=== PATIENT | male | born 1950 | race American Indian/Alaskan Native ===

== ENCOUNTER 2016-04-06 17:40 | Inpatient (IN) | payer MEDICARE ==
--- NOTE | 2016-04-06 18:52 | History and Physical Report ---
History of Present Illness Date of examination: 04/06/16 Date of admission: April 06 2016 Chief complaint: Left sided weakness Slurred speech Unsteady gait Difficulty with ambulation blurred vision History of present illness: 65 year old male here to get established with our practice presenting with weakness in the left leg ongoing for the past two days .Patient has had pain in the lower extremities over the years with associated occasional numbness in both lower extremities .Patient first had a stroke in 1994 which affected the left side of his body but he stated that he recovered completely from it . Patient stated that he woke up two days ago and noticed he could not get up, he then decided to go back to sleep but finally able to force himself to get up after going back to sleep . He attempted to star walking but noticed that he was unable to maintain erect posture but still struggled to ambulate , on trying to get to the bathroom , he fell and was not able to get up for about half hour , patient currently lives with his sister and later got up by himself after a lot of difficulty .Since then he has had difficulty ambulating and now uses a walking stick to walk but it slow and has noticed unsteadiness since the incidence ,he also noticed that the left leg feels numb and heavy and also felt some weakness in the left upper extremities as well but not as severe as the lower extremity . Patient denied any difficulty swallowing but patient changes with speech and his sister confirmed that his speech is slurred slurred speech . Patient denied any shortness of breath and no chest pain . Patient aslo gave remote history of heart atack several years ago when he used to live in [place] but denied any chest pain at this time but has had shortness of breath with exertion over the years . Past History Past Medical History: acute [place], hypertension, stroke Social history: Family history: hypertension Medications and Allergies Allergies Allergy/AdvReac Type Severity Reaction Status Date / Time No Known Allergies Allergy Unverified 04/06/16 18:33 Review of Systems Constitutional: weight gain, fatigue, weakness, chronic pain Eyes: bilateral: blurred vision Cardiovascular: orthopnea, palpitations, lightheadedness, shortness of breath, high blood pressure, decreased exercise tolerance Respiratory: dyspnea on exertion Musculoskeletal: shooting arm pain, low back pain, leg numbness/tingling, morning stiffness, frequent falls Neurological: weakness, numbness, lack of coordination, headaches, change in speech, confusion, balance difficulties, gait dysfunction, motor disturbance, paralysis Exam - Constitutional General appearance: Present: no acute distress - EENT Eyes: Present: EOM intact - Neck Neck: Present: normal ROM - Respiratory Respiratory effort: normal Respiratory: bilateral: CTA - Cardiovascular Rhythm: regularly irregular Heart Sounds: Present: systolic murmur - Extremities Extremities: pulses symmetrical, No edema, normal temperature, normal color Peripheral Pulses: within normal limits - Abdominal General gastrointestinal: Present: soft, non-tender, non-distended, normal bowel sounds Male genitourinary: Present: deferred - Rectal Rectal Exam: deferred - Integumentary Integumentary: Present: warm, dry - Musculoskeletal Musculoskeletal: left sided weakness - Psychiatric Psychiatric: appropriate mood/affect - Neurologic Neurologic: other (left sided weakness .Power 3/5 in left lower and 4/5 in left upper . Gait ataxic leaning right ) Assessment and Plan - Patient Problems (1) Acute cerebrovascular insufficiency Status: Acute Plan to address problem: Admit for further workup and neurological evaluation (2) Essential (primary) hypertension Status: Acute Plan to address problem: Review current therapy and adjust for optimum control (3) Mixed hyperlipidemia Status: Acute Plan to address problem: Continue lipid lowering medication as ordered (4) Ataxia due to cerebrovascular disease Status: Acute Plan to address problem: Physical therapy , Occupational therapy .
[2016-04-06] MEDS: TYLENOL PO SCH (20:35)
--- NOTE | 2016-04-06 21:42 | Cat Scan Report ---
FINAL REPORT PROCEDURE: CT HEAD/BRAIN WO CON TECHNIQUE: Computerized tomography of the head was performed without contrast material. HISTORY: Stroke symptoms COMPARISON: No prior studies are available for comparison. FINDINGS: There are diffuse involutional changes, with prominence of the ventricles and the sulci. There is focal right frontal periventricular white matter low attenuation, which has a chronic appearance, likely related to chronic microvascular ischemic changes. There is no CT evidence of acute intracranial hemorrhage, mass, hydrocephalus, or acute territorial infarction. The calvarium is intact. There is mild mucosal thickening in the sphenoid sinus. IMPRESSION: No CT evidence of acute intracranial disease process
[2016-04-06 22:24] LABS: Basophils % (Auto) 0.5 % (0.0-1.8); Eosinophils % (Auto) 1.9 % (0.0-4.3); Hematocrit 42.7 % (35.5-45.6); Hemoglobin 14.1 gm/dl (11.8-15.2); Mean Corpuscular HGB Conc 33 % (32-34); Mean Corpuscular Hemoglobin 30 pg (28-32); Mean Corpuscular Volume 91 fl (84-94); Platelet Count 176 K/mm3 (140-440); Red Cell Distribution Width 13.9 % (13.2-15.2); White Blood Count 5.8 K/mm3 (4.5-11.0)
[2016-04-06 22:35] LABS: INR 1.14 (0.87-1.13); Partial Thromboplastin Time 33.6 Sec. (24.2-36.6)
[2016-04-06 22:44] LABS: Alanine Aminotransferase 11 units/L (7-56); Albumin/Globulin Ratio 1.2 %; Alkaline Phosphatase 91 units/L (35-129); Blood Urea Nitrogen 14 mg/dL (9-20); Calcium 9.1 mg/dL (8.4-10.2); Carbon Dioxide 28 mmol/L (22-30); Chloride 97.4 mmol/L (98-107); Glucose 107 mg/dL (75-100); Potassium 3.4 mmol/L (3.6-5.0); Sodium 140 mmol/L (137-145); Total Protein 7.4 g/dL (6.3-8.2)
[2016-04-06 23:04] LABS: Anion Gap 18 mmol/L
[2016-04-07] MEDS: TYLENOL PO SCH ×4 (02:19→21:17)
--- NOTE | 2016-04-07 07:38 | Admit Criteria Form ---
Admission Criteria Documentation: STROKE: ISCHEMIC Clinical Indications for Admission to Inpatient Care (Place 'X' for any and all applicable criteria): Admission is indicated for ANY ONE of the following(1)(2)(3)(4): [X ]I. Acute stroke Extended stay beyond goal length of stay may be needed for(1)(2) [ ]a) Major deficit or clinical deterioration [ ]b) Hospital-acquired infection (eg, urinary tract infection, pneumonia) [ ]c) Embolic cause of stroke [ ]d) Venous thromboembolism(9) [ ]e) Seizures [ ]f) Bleeding (eg, cerebral) [ ]g) Increased intracranial pressure [ ]h) Comorbidities [ ]i) Surgical intervention The original [email or web address] content created by [employer] has been revised. The portions of the content which have been revised are identified through the use of italic text or in bold, and [facility] has neither reviewed nor approved the modified material. All other unmodified content is copyright [email or web address]. Please see references footnoted in the original [email or web address] edition 2016 Admission Criteria Met: Yes
--- NOTE | 2016-04-07 14:02 | Progress Note ---
Assessment and Plan - Patient Problems (1) Acute cerebrovascular insufficiency Current Visit: Yes Status: Acute Plan to address problem: CT scan report noted showing no acute cerebrovascular event. We'll order MRI to confirm acute CVA and localization Patient gets to be evaluated by neurologists, awaiting consultation (2) Essential (primary) hypertension Current Visit: Yes Status: Acute Plan to address problem: Blood pressure noted to be within normal range will hold off on restarting blood pressure medication at this time. (3) Mixed hyperlipidemia Current Visit: Yes Status: Acute Plan to address problem: Will restart patient on a medication. (4) Ataxia due to cerebrovascular disease Current Visit: Yes Status: Acute Subjective Date of service: 04/07/16 Interval history: Patient seen and examined chart reviewed. Impression denied any new complaints , still having weakness and heaviness on the left side worse than the left lower extremities. Patient was able to ambulate with support during physical therapy started this morning. No chest pain and no shortness of breath reported and patient denied any headache and no blurred vision. No new neurological changes reported since hospitalization Objective - Exam Narrative Exam: GENERAL: Patient is not in any acute distress, sitting at the edge of the bed, awake alert oriented 3 HEENT: Patient is not pale, not jaundiced, not cyanosed. NECK: No JVD, no thyroid enlargement and no lymphadenopathy. CHEST/LUNGS: Good air exchange bilaterally, no wheeze, no rales and no rhonchi. No chest wall tenderness, percussion is normal, symmetrical chest wall. HEART/CARDIOVASCULAR: Regular rate and rhythm, S1 and S2 only, no murmur. ABDOMEN: Abdomen is soft, nondistended, no guarding, no rebound tenderness, no masses palpable per abdomen, active bowel sounds. SKIN: Warm and dry, no rash. NEURO: Awake alert oriented 3, speech is slow but no slurred, power 5 over 5 in right upper and lower extremities, 3 over 5 in the left upper extremity and 2 over 5 in the left lower extremity. EXTREMITIES: No pedal edema, good peripheral pulses, no finger or toe clubbing. - Constitutional Vitals: Vital Signs - 12hr 04/07/16 04/07/16 04/07/16 02:19 04:46 08:00 Temperature 97.4 F L 98.2 F Pulse Rate [ 68 57 L Radial] Respiratory 18 20 18 Rate Blood Pressure 141/82 135/77 [108/68] O2 Sat by Pulse 100 Oximetry 04/07/16 11:38 Temperature 98.0 F Pulse Rate [ 60 Radial] Respiratory 16 Rate Blood Pressure 130/70 [108/68] O2 Sat by Pulse 100 Oximetry - Labs CBC & Chem 7: 04/06/16 21:46 04/06/16 21:54 Labs: Abnormal lab results 04/06/16 04/06/16 04/06/16 Range/Units 21:46 21:54 21:54 [place] % (Auto) 10.9 H (0.0-7.3) % INR 1.14 H (0.87-1.13) Potassium 3.4 L (3.6-5.0) mmol/L Chloride 97.4 L (98-107) mmol/L Glucose 107 H (75-100) mg/dL
[2016-04-07] MEDS ORDERED: K-DUR PO ONE (14:17)
[2016-04-07] MEDS ORDERED: NITROSTAT SL PRN (19:39)
[2016-04-07] MEDS ORDERED: NON-FORMULARY (Isosorbide Mononitrate 30 MG) PO SCH (19:45)
[2016-04-07] MEDS: PLAVIX PO SCH (21:11)
[2016-04-07] MEDS: ZESTRIL PO SCH (21:12)
[2016-04-07] MEDS: BABY ASPIRIN PO SCH (21:12)
[2016-04-08] MEDS: TYLENOL PO SCH ×4 (03:00→23:07)
[2016-04-08 07:43] LABS: Anion Gap 16 mmol/L; BUN/Creatinine Ratio 14.44; Blood Urea Nitrogen 13 mg/dL (9-20); Calcium 9.2 mg/dL (8.4-10.2); Carbon Dioxide 28 mmol/L (22-30); Chloride 100.8 mmol/L (98-107); Glucose 108 mg/dL (75-100); Potassium 3.5 mmol/L (3.6-5.0); Sodium 141 mmol/L (137-145)
[2016-04-08] MEDS ORDERED: NON-FORMULARY (Hydrochlorothiazide 25 MG) PO SCH (10:00)
--- NOTE | 2016-04-08 10:17 | Magnetic Resonance Report ---
MRA of brain: History: Acute CVA. Findings: There is arteriosclerotic changes noted at the vessels of [place] predominantly in the anterior and middle cerebral arteries. The posterior communicating vessels are faintly visualized. Atherosclerotic changes are noted at the basilar and vertebral arteries. Suspicion of multiple stenotic areas. No occlusion. No evidence of aneurysm. Impression: Findings as detailed above.
[2016-04-08] MEDS: HCTZ PO SCH (10:59)
[2016-04-08] MEDS: IMDUR PO SCH (10:59)
[2016-04-08] MEDS: PLAVIX PO SCH (10:59)
[2016-04-08] MEDS: ZESTRIL PO SCH (11:00)
[2016-04-08] MEDS: BABY ASPIRIN PO SCH (11:00)
[2016-04-08] MEDS: LOPRESSOR PO SCH (11:05)
--- NOTE | 2016-04-08 11:43 | Echocardiography Report ---
Transthoracic Echocardiogram BP: 141/82 HR: 57 Conclusions *1. Mild dilated LV with mild LV dysfunction, EF 40-45%. *2. Moderate conc LVH. *3. Mild dilatation of the ascending aorta, 4.4 cm. Findings Procedure Info: The study quality is technically difficult. The study is technically limited due to poor acoustic windows. Left Ventricle: The left ventricular chamber size is mildly dilated. Moderate concentric left ventricular hypertrophy is observed. Posterior wall hypertrophy is observed. Mild global hypokinesis of the left ventricle is observed. Global left ventricular systolic function is mildly decreased. The estimated ejection fraction is 40-45%. The basal inferoseptal wall segment is akinetic. Left Atrium: The left atrial chamber size is normal. Right Ventricle: The right ventricle is not well visualized. The right ventricular cavity size is normal. The right ventricular global systolic function is normal. Right Atrium: The right atrium is not well visualized. The right atrial cavity size is normal. Aortic Valve: The aortic valve is not well visualized. The aortic valve is trileaflet. The aortic valve leaflets are moderately thickened. There is moderate thickening of the right coronary cusp. There is moderate thickening of the non coronary cusp. Moderate aortic leaflet calcification is visualized. Systolic excursion of the aortic valve is normal. There is no evidence of aortic regurgitation. There is no evidence of aortic stenosis. Mitral Valve: The mitral valve leaflets appear myxomatous. The mitral valve leaflets are mildly thickened. There is trace of mitral regurgitation. There is no evidence of mitral stenosis. Tricuspid Valve: The tricuspid valve is not well visualized. There is trace tricuspid regurgitation. The right ventricular systolic pressure is calculated at 23 mmHg. No pulmonary hypertension is noted. There is no tricuspid stenosis. Pulmonic Valve: The pulmonic valve is not well visualized. There is trace pulmonic regurgitation. There is no pulmonic stenosis. Pericardium: There is no pericardial effusion. No pleural effusion is present. Aorta: There is mild dilatation of the ascending aorta. Venous: The inferior vena cava appears normal in size. There is a greater than 50% respiratory change in the inferior vena cava dimension. Contrast: Definity was used to optimize study. Intravenous contrast was used to enhance endocardial border definition. Measurements Chambers MM Name Value Normal Range IVSd (MM) 1.46 cm (0.6 - 1.1) LVPWd (MM) 1.01 cm (0.6 - 1.1) IVS:LVPW ratio 1.45 ratio - LVIDd (MM) 6.25 cm (3.7 - 5.6) LVIDs (MM) 3.98 cm (2 - 2.8) LV FS (Teichholz) (MM) 36.3 % - LV FS (cube) (MM) 36.3 % - EF Teichholz (MM) 65.1 % - Ao root diameter (MM) 3.7 cm (2 - 3.7) LA dimension (AP) MM 3.6 cm (1.9 - 4) LA:Ao ratio (MM) 0.97 ratio - AV cusp separation (MM) 1.5 cm (1.5 - 2.6) Chambers 2D Name Value Normal Range IVSd (2D) 1.11 cm (0.6 - 1.1) LVPWd 1.5 cm - LVPWd (2D) 1.46 cm (0.6 - 1.1) IVS:LVPW ratio (2D) 0.76 ratio - LVIDd 5.7 cm - LVIDs 4.1 cm - LVIDd (2D) 5.7 cm (3.7 - 5.6) LVIDs (2D) 4.06 cm (2 - 3.8) LV FS (Teichholz) (2D) 28.8 % - LV FS (cube) (2D) 28.8 % - LV EF (2D) 54 % - EF Teichholz (2D) 54.7 % - LA dimension 3.3 cm - Ao root diameter (2D) 3.7 cm (2 - 3.7) LA dimension (AP) 2D 3.3 cm (1.9 - 4) LA:Ao ratio (2D) 0.89 ratio - Volumes/Mass Name Value Normal Range LA ESV SP 4CH (MOD) 35 ml - LV EDV SP 4CH (MOD) 151 ml - LV ESV SP 4CH (MOD) 88 ml - EF SP 4CH (MOD) 42 % - Diastolic/Systolic Function Name Value Normal Range MV E-wave Vmax 0.54 m/sec - MV deceleration time 356 msec - MV A-wave Vmax 0.79 m/sec - MV E:A ratio 0.7 ratio - LV septal e' Vmax 0.06 m/sec - LV lateral e' Vmax 0.03 m/sec - LV E:e' septal ratio 8.5 ratio - LV E:e' lateral ratio 15.8 ratio - Aortic Valve Name Value Normal Range AV Vmax 1.07 m/sec - AV peak gradient 5 mmHg - LVOT diameter 2.3 cm - LVOT Vmax 0.99 m/sec - LVOT peak gradient 4 mmHg - KINJAL (continuity Vmax) 3.86 cm2 - Tricuspid Valve Name Value Normal Range TR Vmax 2.24 m/sec - TR peak gradient 20 mmHg - RAP 3 mmHg - RVSP 23 mmHg - Pulmonic Valve/Qp:Qs Name Value Normal Range PV Vmax 0.76 m/sec - PV peak gradient 2 mmHg - MI end-diastolic Vmax 1.02 m/sec - PV acceleration time 88 msec - Wall[place] BAS Not Seen BA Not Seen BAL Not Seen GUNNER Not Seen BI Not Seen BIS Akinetic MAS Not Seen MA Not Seen MAL Not Seen MIL Not Seen MS Not Seen MIS Not Seen Not Seen AA Not Seen AL Not Seen AI Not Seen APEX Not Seen
--- NOTE | 2016-04-08 13:14 | Consultation ---
History of Present Illness - Reason for Consult Consult date: 04/08/16 stroke - History of Present Illness patient seen and assessed he has deep white matter stroke from HTN- the echo is OK and await the carotid u/s the MRA is showing no focal occlusions Past History Past Medical History: acute [place], hypertension, stroke Social history: Family history: hypertension Medications and Allergies Allergies Allergy/AdvReac Type Severity Reaction Status Date / Time No Known Allergies Allergy Unverified 04/06/16 18:33 Home Medications Medication Instructions Recorded Confirmed Last Taken Type Aspirin [Aspirin BABY CHEW TAB] 81 mg PO QDAY 04/07/16 04/07/16 Unknown History Clopidogrel Bisulfate [Plavix] 75 mg PO QDAY 04/07/16 04/07/16 Unknown History Hydrochlorothiazide 25 mg PO QDAY 04/07/16 04/07/16 Unknown History Isosorbide Mononitrate 30 mg PO DAILY 04/07/16 04/07/16 Unknown History Lisinopril [Zestril] 40 mg PO QDAY 04/07/16 04/07/16 Unknown History Metoprolol [Lopressor TAB] 100 mg PO QDAY 04/07/16 04/07/16 Unknown History Nitroglycerin [Nitrostat] 0.4 mg SL Q5MIN PRN 04/07/16 04/07/16 Unknown History Active Meds: Active Medications Acetaminophen (Tylenol) 650 mg PO Q6H [facility] Last Admin: 04/08/16 11:06 Dose: 650 mg Aspirin (Baby Aspirin) 81 mg PO QDAY [facility] Last Admin: 04/08/16 11:00 Dose: 81 mg Clopidogrel Bisulfate (Plavix) 75 mg PO QDAY [facility] Last Admin: 04/08/16 10:59 Dose: 75 mg Hydrochlorothiazide (Hctz) 25 mg PO QDAY [facility] Last Admin: 04/08/16 10:59 Dose: 25 mg Isosorbide Mononitrate (Imdur) 30 mg PO DAILY [facility] Last Admin: 04/08/16 10:59 Dose: 30 mg Lisinopril (Zestril) 40 mg PO QDAY [facility] Last Admin: 04/08/16 11:00 Dose: 40 mg Metoprolol Tartrate (Lopressor) 100 mg PO QDAY [facility] Last Admin: 04/08/16 11:05 Dose: 100 mg Nitroglycerin (Nitrostat) 0.4 mg SL Q5MIN PRN PRN Reason: Chest Pain Exam - Constitutional Vitals: Temp Pulse Resp BP Pulse Ox 98.0 F 61 18 112/66 100 04/08/16 12:00 04/08/16 12:00 04/08/16 12:00 04/08/16 12:00 04/08/16 12:00 Results - Labs CBC & Chem 7: 04/06/16 21:46 04/08/16 06:05 Labs: Abnormal lab results 04/08/16 Range/Units 06:05 Potassium 3.5 L (3.6-5.0) mmol/L Glucose 108 H (75-100) mg/dL
--- NOTE | 2016-04-08 16:48 | Progress Note ---
Assessment and Plan - Patient Problems (1) Acute cerebrovascular insufficiency Diagnosis Date: 04/08/16 Current Visit: Yes Status: Acute Plan to address problem: Continue with ASA, Statin, PT, OT and ST (2) Ataxia due to cerebrovascular disease Diagnosis Date: 04/08/16 Current Visit: Yes Status: Acute Plan to address problem: Physical atherapy (3) Essential (primary) hypertension Diagnosis Date: 04/08/16 Current Visit: Yes Status: Acute Plan to address problem: Optimize BP control (4) Mixed hyperlipidemia Diagnosis Date: 04/08/16 Current Visit: Yes Status: Acute Plan to address problem: continue with Statin (5) Acute ischemic stroke Diagnosis Date: 04/08/16 Current Visit: Yes Status: Acute Plan to address problem: Continue with ASA. Atorvastatin, PT, OT,ST (6) Hypokalemia Diagnosis Date: 04/08/16 Current Visit: Yes Status: Acute Plan to address problem: Will replete Subjective Date of service: 04/08/16 Principal diagnosis: [place] Interval history: No new complaint Objective - Constitutional Vitals: Vital Signs - 12hr 04/08/16 04/08/16 04/08/16 08:00 10:59 11:00 Temperature 98.3 F Pulse Rate 69 69 Pulse Rate [ 69 Radial] Respiratory 20 Rate Blood Pressure 132/98 132/98 Blood Pressure 132/82 [108/68] O2 Sat by Pulse 97 Oximetry 04/08/16 04/08/16 11:05 12:00 Temperature 98.0 F Pulse Rate 69 Pulse Rate [ 61 Radial] Respiratory 18 Rate Blood Pressure 132/98 Blood Pressure 112/66 [108/68] O2 Sat by Pulse 100 Oximetry General appearance: Present: no acute distress - EENT Eyes: PERRL, EOM intact ENT: hearing intact, clear oral mucosa Ears: bilateral: normal - Neck Neck: supple, normal ROM - Respiratory Respiratory effort: normal Respiratory: bilateral: CTA - Breasts Breasts: normal - Cardiovascular Rhythm: regular Heart Sounds: Present: S1 & S2. Absent: gallop, rub Extremities: pulses intact, No edema, normal color, Full ROM - Gastrointestinal General gastrointestinal: Present: soft, non-tender, non-distended, normal bowel sounds - Genitourinary Male genitourinary: normal - Integumentary Integumentary: clear, warm, dry - Musculoskeletal Musculoskeletal: 1, strength equal bilaterally - Neurologic Neurologic: moves all extremities - Psychiatric Psychiatric: memory intact, appropriate mood/affect, intact judgment & insight - Labs CBC & Chem 7: 04/06/16 21:46 04/08/16 06:05 Labs: Abnormal lab results 04/08/16 Range/Units 06:05 Potassium 3.5 L (3.6-5.0) mmol/L Glucose 108 H (75-100) mg/dL
[2016-04-09] MEDS: TYLENOL PO SCH ×4 (02:58→20:00)
--- NOTE | 2016-04-09 05:01 | Consultation ---
HISTORY OF PRESENT ILLNESS: This is a 65-year-old black male that presents to [facility] with emergency admission for evaluation of left-sided weakness. Apparently, he had the onset of this weakness previously, but then had a second stroke and woke up in the morning being unable to move his left arm. He had, in 1995, a prior stroke, but he could provide very little information about this. In the interval, he has had an MRI scan of the brain with multiple atherosclerotic changes in the [place], anterior middle cerebral arteries, but no occlusion, no aneurysm. CT scan of the head shows a focal right periventricular white matter attenuation which is chronic, microvascular changes also. Review of his echocardiogram reveals normal left ventricle and mild left ____ dysfunction, ejection fraction 40%-45%, and slight dilation of the ascending aorta at 4.4 cm, no clots were present within the ventricular system, aortic and mitral valves have unremarkable appearance and there was no AV shunt. The patient had, on examination, left-sided weakness, slurred speech, and unsteady gait. PAST MEDICAL HISTORY: Acute [place], hypertension, on my examination is present. ALLERGIES: He has no known allergies. PHYSICAL EXAMINATION: Blood pressure is 132/98, his pulse rate is 61, respirations are 18. He is afebrile. PO2 on room air is 100%. His ocular movements are completely full. He has evidence of absent reflexes throughout. He moves both right and left extremities well, but has a flaccid paralysis of his left arm, but no paralysis of the left face. He is fully alert. Does not have any problem findings such as visual field cut or any evidence of any denial with hemiparesis or any parietal lobe findings such as neglect or phantom limb sensation. Sensory examination is unremarkable. IMPRESSION: Acute stroke, deep white matter, right cerebral hemisphere, hypertensive in etiology, although at this point the report for the carotid is not back yet. I do not see anything on the echo of note. Would recommend Plavix and aspirin therapy, lower blood pressure, treat high cholesterol. Physical therapy is recommended at this point. JOB# [id number] TANA/NTS
[2016-04-09] MEDS: LOPRESSOR PO SCH (09:18)
[2016-04-09] MEDS: IMDUR PO SCH (09:19)
[2016-04-09] MEDS: HCTZ PO SCH (09:19)
[2016-04-09] MEDS: BABY ASPIRIN PO SCH (09:19)
[2016-04-09] MEDS: ZESTRIL PO SCH (09:19)
[2016-04-09] MEDS: PLAVIX PO SCH (09:19)
--- NOTE | 2016-04-09 13:29 | Progress Note ---
Assessment and Plan - Patient Problems (1) Acute ischemic stroke Diagnosis Date: 04/08/16 Current Visit: Yes Status: Acute Plan to address problem: continue with ASA, statin PT/OT/ST. For acute rahab. consult Dr. Russo (2) Mixed hyperlipidemia Diagnosis Date: 04/08/16 Current Visit: Yes Status: Acute Plan to address problem: contiue with Statin (3) Ataxia due to cerebrovascular disease Diagnosis Date: 04/08/16 Current Visit: Yes Status: Acute Plan to address problem: ASA, Statin, LPT/OT ST (4) Essential (primary) hypertension Diagnosis Date: 04/08/16 Current Visit: Yes Status: Acute Plan to address problem: Controlled (5) Hypokalemia Diagnosis Date: 04/08/16 Current Visit: Yes Status: Acute Plan to address problem: Supplement further Subjective Date of service: 04/09/16 Principal diagnosis: [place] Interval history: No new complaint. No overnight event. still weak on he left upper and lower extremities Objective - Constitutional Vitals: Vital Signs - 12hr 04/09/16 04/09/16 02:58 08:00 Temperature 98.1 F Pulse Rate [ 64 Radial] Respiratory 18 18 Rate Blood Pressure 135/87 [108/68] O2 Sat by Pulse 98 Oximetry General appearance: Present: no acute distress, well-nourished - EENT Eyes: PERRL, EOM intact ENT: hearing intact, clear oral mucosa Ears: bilateral: normal - Neck Neck: supple, normal ROM - Respiratory Respiratory effort: normal Respiratory: bilateral: CTA - Breasts Breasts: normal - Cardiovascular Rhythm: regular Heart Sounds: Present: S1 & S2. Absent: gallop, rub Extremities: pulses intact, No edema, normal color, Full ROM - Gastrointestinal General gastrointestinal: Present: soft, non-tender, non-distended, normal bowel sounds - Genitourinary Male genitourinary: normal - Integumentary Integumentary: clear, warm, dry - Musculoskeletal Musculoskeletal: 1, strength equal bilaterally - Neurologic Neurologic: moves all extremities - Psychiatric Psychiatric: memory intact, appropriate mood/affect, intact judgment & insight - Labs CBC & Chem 7: 04/06/16 21:46 04/08/16 06:05
[2016-04-09] MEDS: K-DUR PO SCH ×2 (14:09→21:38)
[2016-04-10] MEDS: TYLENOL PO SCH ×3 (02:47→15:28)
[2016-04-10 07:38] LABS: Basophils % (Auto) 0.6 % (0.0-1.8); Eosinophils % (Auto) 3.6 % (0.0-4.3); Hematocrit 41.8 % (35.5-45.6); Hemoglobin 13.8 gm/dl (11.8-15.2); Mean Corpuscular HGB Conc 33 % (32-34); Mean Corpuscular Hemoglobin 30 pg (28-32); Mean Corpuscular Volume 92 fl (84-94); Platelet Count 150 K/mm3 (140-440); Red Blood Count 4.56 M/mm3 (3.65-5.03); Red Cell Distribution Width 13.7 % (13.2-15.2); White Blood Count 5.8 K/mm3 (4.5-11.0)
[2016-04-10 07:53] LABS: Alanine Aminotransferase 14 units/L (7-56); Albumin 3.9 g/dL (3.9-5); Albumin/Globulin Ratio 1.1 %; Alkaline Phosphatase 83 units/L (35-129); Anion Gap 16 mmol/L; Bilirubin,Total 0.6 mg/dL (0.1-1.2); Blood Urea Nitrogen 12 mg/dL (9-20); Calcium 9.1 mg/dL (8.4-10.2); Carbon Dioxide 28 mmol/L (22-30); Chloride 98.9 mmol/L (98-107); Glucose 102 mg/dL (75-100); Magnesium 2.1 mg/dL (1.7-2.3); Potassium 3.6 mmol/L (3.6-5.0); Sodium 139 mmol/L (137-145); Total Protein 7.3 g/dL (6.3-8.2)
[2016-04-10] MEDS: K-DUR PO SCH (11:30)
[2016-04-10] MEDS: HCTZ PO SCH (11:30)
[2016-04-10] MEDS: PLAVIX PO SCH (11:30)
[2016-04-10] MEDS: BABY ASPIRIN PO SCH (11:30)
[2016-04-10] MEDS: IMDUR PO SCH (11:30)
[2016-04-10] MEDS: ZESTRIL PO SCH (11:35)
[2016-04-10] MEDS: LOPRESSOR PO SCH (11:35)
--- NOTE | 2016-04-10 14:26 | Progress Note ---
Assessment and Plan - Patient Problems (1) Essential (primary) hypertension Diagnosis Date: 04/08/16 Current Visit: Yes Status: Acute Plan to address problem: Blood pressure noted to be within normal range will hold off on restarting blood pressure medication at this time. (2) Mixed hyperlipidemia Diagnosis Date: 04/08/16 Current Visit: Yes Status: Acute Plan to address problem: Will restart patient on a medication. (3) Ataxia due to cerebrovascular disease Diagnosis Date: 04/08/16 Current Visit: Yes Status: Acute Plan to address problem: Physical therapy , Occupational therapy . (4) Acute ischemic stroke Diagnosis Date: 04/08/16 Current Visit: Yes Status: Acute Plan to address problem: Patient currently neurologically stable MRA reports reviewed, no new neurological changes since hospitalization. Patient being assessed for transfer to acute rehabilitation floor. The patient's does not qualify for acute rehabilitation inpatient will arrange for outpatient physical therapy and rehabilitation and follow-up as outpatient. Subjective Date of service: 04/10/16 Principal diagnosis: [place] Interval history: Patient seen and examined, events over the weekend noted. No new neurological changes reported by patient and nursing staff. Denied any chest pain or shortness of breath, participating in physical therapy, ambulatory supports denied headache or blurred vision, no dysphagia Objective - Exam Narrative Exam: GENERAL: Patient is not in any acute distress, sitting at the edge of the bed, awake alert oriented 3 HEENT: Patient is not pale, not jaundiced, not cyanosed. NECK: No JVD, no thyroid enlargement and no lymphadenopathy. CHEST/LUNGS: Good air exchange bilaterally, no wheeze, no rales and no rhonchi. No chest wall tenderness, percussion is normal, symmetrical chest wall. HEART/CARDIOVASCULAR: Regular rate and rhythm, S1 and S2 only, no murmur. ABDOMEN: Abdomen is soft, nondistended, no guarding, no rebound tenderness, no masses palpable per abdomen, active bowel sounds. SKIN: Warm and dry, no rash. NEURO: Awake alert oriented 3, speech is slow but no slurred, power 5 over 5 in right upper and lower extremities, 3 over 5 in the left upper extremity and 2 over 5 in the left lower extremity. EXTREMITIES: No pedal edema, good peripheral pulses, no finger or toe clubbing. - Constitutional Vitals: Vital Signs - 12hr 04/10/16 04/10/16 04/10/16 06:21 08:00 12:14 Temperature 98.1 F 98.2 F Pulse Rate 64 Pulse Rate [ 56 L 58 L Radial] Respiratory 18 20 Rate Blood Pressure 145/89 142/85 [108/68] O2 Sat by Pulse 98 Oximetry - Labs CBC & Chem 7: 04/10/16 06:27 04/10/16 06:27 Labs: Abnormal lab results 04/10/16 04/10/16 Range/Units 06:27 06:27 Lymph % (Auto) 35.6 H (13.4-35.0) % [place] % (Auto) 11.4 H (0.0-7.3) % Glucose 102 H (75-100) mg/dL
--- NOTE | 2016-04-10 14:32 | Discharge Summary ---
Providers - Providers Date of Admission: 04/06/16 19:17 Date of discharge: 04/10/16 Attending physician: RUDY TAYLOR 04/06/16 18:38 Physical Therapy Evaluation and Treat [CONS] Urgent Comment: Reason For Exam: acute CVA Mode of Transport?: Wheelchair Weight bearing status?: Nonwt bearing 04/06/16 19:02 Consult to Physician [CONS] Urgent Consulting Provider: KIMBERLY MARIA Reason For Exam: acute CVA Place consult to:: Dr Maria Notified:: no Was contact made?: No 04/09/16 13:50 Consult to Physician [CONS] Routine Consulting Provider: CLARENCE JENKINS Reason For Exam: Acute stroke Place consult to:: Karan Notified:: PLEASE CALL MD IN AM Was contact made?: No Primary care physician: RUDY TAYLOR Hospitalization Reason for admission: right-sided weakness, slurred speech, unsteady gait and dizziness Condition: Fair Procedures: MRI of the brain, MRA of the brain CT scan of the brain Hospital course: 65-year-old male admitted from the office following presentation for acute left- sided weakness and difficulty with ambulation as well as fall at home. Patient has history of hypertension and previous CVA. Patient also has history of coronary artery disease and previous DE. Patient was evaluated and noted to have weakness in the left upper and lower extremity more in the lower extremity with power of 3 over 5. Patient was admitted and started on medication including aspirin as well as prophylactic treatment for DVT, physical therapy was obtained and initiated a consult was put in to neurology for evaluation. Patient's labs were reviewed and hypokalemia corrected. Patient also had CT scan of the brain ordered which showed no acute cerebrovascular events following which what I was put in for MRA which confirmed multiple atherosclerosis changes in the presence of the [place] but there was no stenotic lesion and there was no aneurysm. Patient was evaluated by Dr. Maria and stated diagnosis of deep white matter CVA. Physical therapy was continued and patient has remained stable blood pressure is within normal control. Patient is now being evaluated by Dr. Fox of physical medicine and rehabilitation for inpatient rehabilitation the patient is accepted will transfer to inpatient rehabilitation otherwise will arrange for outpatient physical therapy. Disposition: DC/TX INPT REHAB FACILITY - Discharge Diagnoses (1) Essential (primary) hypertension Status: Acute (2) Mixed hyperlipidemia Status: Acute (3) Ataxia due to cerebrovascular disease Status: Acute (4) Acute ischemic stroke Status: Acute Core Measure Documentation - Palliative Care Palliative Care/ Comfort Measures: Not Applicable - Core Measures Any of the following diagnoses?: stroke - Stroke Discharge Requirements Statin for LDL = or >70 mg/dl on DC: Yes Anticoag for atrial fib/atrial flutter: No Reason for no anticoag for AF/F on DC: Not Indicated Antithrombotic for ischemic stroke: Yes Exam - Physical Exam Narrative exam: GENERAL: Patient is not in any acute distress, sitting at the edge of the bed, awake alert oriented 3 HEENT: Patient is not pale, not jaundiced, not cyanosed. NECK: No JVD, no thyroid enlargement and no lymphadenopathy. CHEST/LUNGS: Good air exchange bilaterally, no wheeze, no rales and no rhonchi. No chest wall tenderness, percussion is normal, symmetrical chest wall. HEART/CARDIOVASCULAR: Regular rate and rhythm, S1 and S2 only, no murmur. ABDOMEN: Abdomen is soft, nondistended, no guarding, no rebound tenderness, no masses palpable per abdomen, active bowel sounds. SKIN: Warm and dry, no rash. NEURO: Awake alert oriented 3, speech is slow but no slurred, power 5 over 5 in right upper and lower extremities, 3 over 5 in the left upper extremity and 2 over 5 in the left lower extremity. EXTREMITIES: No pedal edema, good peripheral pulses, no finger or toe clubbing. - Constitutional Vitals: Temp Pulse Resp BP Pulse Ox 98.2 F 58 L 20 142/85 98 04/10/16 12:14 04/10/16 12:14 04/10/16 12:14 04/10/16 12:14 04/10/16 08:00 Plan Activity: fall precautions Weight Bearing Status: Full Weight Bearing Diet: low cholesterol, low salt Special Instructions: record daily BP diary Durable Medical Equipment Needed Upon Discharge: Walker-Rolling
--- NOTE | 2016-04-10 16:12 | Consultation ---
History of Present Illness - Reason for Consult Consult date: 04/10/16 Evaluate for Acute IRU - History of Present Illness 65 y.o. male with history of prior TIA many years ago, admitted for acute onset of left sided weakness and difficulty ambulating. Pt reports awakening and noting weakness; fell attempting to get to the bathroom. CT negative, however, pt with clinical signs of CVA. +stenosis noted on MRA; EF 40-45% on Echo. Consult placed for post-acute placement recommendations. Past History Past Medical History: acute DE, hypertension, stroke Past Surgical History: No surgical history Social history: , lives with family (sister). denies: smoking, alcohol abuse Family history: hypertension Medications and Allergies Allergies Allergy/AdvReac Type Severity Reaction Status Date / Time No Known Allergies Allergy Unverified 04/06/16 18:33 Home Medications Medication Instructions Recorded Confirmed Last Taken Type Aspirin [Aspirin BABY CHEW TAB] 81 mg PO QDAY 04/07/16 04/07/16 Unknown History Clopidogrel Bisulfate [Plavix] 75 mg PO QDAY 04/07/16 04/07/16 Unknown History Hydrochlorothiazide 25 mg PO QDAY 04/07/16 04/07/16 Unknown History Isosorbide Mononitrate 30 mg PO DAILY 04/07/16 04/07/16 Unknown History Lisinopril [Zestril] 40 mg PO QDAY 04/07/16 04/07/16 Unknown History Metoprolol [Lopressor TAB] 100 mg PO QDAY 04/07/16 04/07/16 Unknown History Nitroglycerin [Nitrostat] 0.4 mg SL Q5MIN PRN 04/07/16 04/07/16 Unknown History Active Meds: Active Medications Acetaminophen (Tylenol) 650 mg PO Q6H [facility] Last Admin: 04/10/16 15:28 Dose: 650 mg Aspirin (Baby Aspirin) 81 mg PO QDAY [facility] Last Admin: 04/10/16 11:30 Dose: 81 mg Clopidogrel Bisulfate (Plavix) 75 mg PO QDAY [facility] Last Admin: 04/10/16 11:30 Dose: 75 mg Hydrochlorothiazide (Hctz) 25 mg PO QDAY [facility] Last Admin: 04/10/16 11:30 Dose: 25 mg Isosorbide Mononitrate (Imdur) 30 mg PO DAILY [facility] Last Admin: 04/10/16 11:30 Dose: 30 mg Lisinopril (Zestril) 40 mg PO QDAY [facility] Last Admin: 04/10/16 11:35 Dose: 40 mg Metoprolol Tartrate (Lopressor) 100 mg PO QDAY [facility] Last Admin: 04/10/16 11:35 Dose: 100 mg Nitroglycerin (Nitrostat) 0.4 mg SL Q5MIN PRN PRN Reason: Chest Pain Potassium Chloride (K-Dur) 40 meq PO BID [facility] Stop: 04/10/16 23:59 Last Admin: 04/10/16 11:30 Dose: 40 meq Review of Systems All systems: negative Ears, nose, mouth and throat: no headache Cardiovascular: no chest pain, no lightheadedness Respiratory: no cough Gastrointestinal: no nausea, no vomiting, no constipation Genitourinary Male: no dysuria Neurological: weakness, balance difficulties, gait dysfunction Exam - Constitutional Vitals: Vital Signs - 12hr 04/10/16 04/10/16 04/10/16 06:21 08:00 12:14 Temperature 98.1 F 98.2 F Pulse Rate 64 Pulse Rate [ 56 L 58 L Radial] Respiratory 18 20 Rate Blood Pressure 145/89 142/85 [108/68] O2 Sat by Pulse 98 Oximetry General appearance: no acute distress, obese, other (sister and brother present in room) - EENT Eyes: EOM intact ENT: hearing intact - Neck Neck: supple, normal ROM - Respiratory Respiratory effort: normal Respiratory: bilateral: CTA - Cardiovascular Rhythm: regular Heart Sounds: Present: S1 & S2 - Extremities Extremities: No edema - Gastrointestinal General gastrointestinal: Present: soft, non-tender, non-distended, normal bowel sounds - Integumentary Integumentary: Present: clear - Musculoskeletal Musculoskeletal: left sided weakness (2/5 on left; left foot drop) - Neurologic Neurologic: CNII-XII intact - Psychiatric Psychiatric: appropriate mood/affect, intact judgment & insight, memory intact, cooperative - Allied health notes Allied health notes reviewed: PT (modA-CGA for transfers; modA 12 feet with RW) FIMS assesment as documented by PT/OT/ST: Locomotion- walk/wheelchair Ambulation Distance 12 - Labs CBC & Chem 7: 04/10/16 06:27 04/10/16 06:27 Labs: Laboratory Results - last 72 hr 04/08/16 04/08/16 04/10/16 06:05 06:05 06:27 WBC 5.8 RBC 4.56 Hgb 13.8 Hct 41.8 MCV 92 MCH 30 MCHC 33 RDW 13.7 Plt Count 150 Lymph % (Auto) 35.6 H [place] % (Auto) 11.4 H Eos % (Auto) 3.6 Baso % (Auto) 0.6 Lymph # 2.1 [place] # 0.7 Eos # 0.2 Baso # 0.0 Seg Neutrophils % 48.8 Seg Neutrophils # 2.8 Sodium 141 Potassium 3.5 L Chloride 100.8 Carbon Dioxide 28 Anion Gap 16 BUN 13 Creatinine 0.9 Estimated GFR > 60 BUN/Creatinine Ratio 14.44 Glucose 108 H Calcium 9.2 Magnesium Total Bilirubin AST ALT Alkaline Phosphatase Total Protein Albumin Albumin/Globulin Ratio Triglycerides 127 Cholesterol 167 LDL Cholesterol Direct 100 HDL Cholesterol 42 Cholesterol/HDL Ratio 3.97 04/10/16 06:27 WBC RBC Hgb Hct MCV MCH MCHC RDW Plt Count Lymph % (Auto) [place] % (Auto) Eos % (Auto) Baso % (Auto) Lymph # [place] # Eos # Baso # Seg Neutrophils % Seg Neutrophils # Sodium 139 Potassium 3.6 Chloride 98.9 Carbon Dioxide 28 Anion Gap 16 BUN 12 Creatinine 0.8 Estimated GFR > 60 BUN/Creatinine Ratio 15.00 Glucose 102 H Calcium 9.1 Magnesium 2.1 Total Bilirubin 0.6 AST 20 ALT 14 Alkaline Phosphatase 83 Total Protein 7.3 Albumin 3.9 Albumin/Globulin Ratio 1.1 Triglycerides Cholesterol LDL Cholesterol Direct HDL Cholesterol Cholesterol/HDL Ratio - Imaging and cardiology CT Scan - head: report reviewed Other: report reviewed (MRA) Assessment and Plan Patient was assessed and evaluated for Acute Inpatient Rehab Unit. 65 y.o. male with acute right sided CVA and left hemiparesis. Pt is noted to have ongoing functional deficits following CVA. Pt would benefit from inpatient rehabilitation course to address strengthening of left sided extremities, balance, gait/transfer training, ADLs training, fine motor skills; provide CVA education. Pt has been participating well with PT and is thought to be able to tolerate 3 hours of therapy/day, 5 days/week, including PT and OT. Pt was independent with functional mobility and self cares prior to admission. At this time, pt requires modA for gait and modA-CGA for transfers. Potential barriers/complications that would currently prevent a safe return home or transfer to lower level of care include high risk for falls, DVT, PE; risk for development of spasticity/tone, depression, syncope, hypotension; impaired balance, mobility, and strength. Pt has good rehab potential, good overall medical prognosis, and has good family support with high likelihood of returning to the community at discharge. Will need ongoing medical management for hypokalemia, hypertension; depression screening; CVA education. Tentative for admission to IRU. - Patient Problems (1) Acute ischemic stroke Diagnosis Date: 04/08/16 Current Visit: Yes Status: Acute (2) Hemiparesis affecting left side as late effect of cerebrovascular accident Current Visit: Yes Status: Acute (3) Abnormality of gait following cerebrovascular accident (CVA) Current Visit: Yes Status: Acute (4) Hypertension Current Visit: Yes Status: Acute Qualifiers: Hypertension type: essential hypertension Qualified Code(s): I10 - Essential (primary) hypertension
[2016-04-10 18:53] VITALS: BP 122/76
--- NOTE | 2016-04-11 10:09 | Vascular Lab Report ---
CAROTID DUPLEX STUDY: RIGHT PSVEDV CCA [id number] CCA [id number] ICA PROX:3415 ICA MID:4422 ICA DIST:[id number] ECA: 65 VERT: 15 6 LEFT PSVEDV CCA PROX:708 CCA DIST:[id number] ICA PROX:4413 ICA MID:[id number] ICA DIST:5821 ECA: 59 VERT: 16 7 REASON FOR EXAM: Acute CVA. COMMENTS ON THE RIGHT: Doppler frequency analysis is consistent with 16 to 49 percent diameter reduction of the internal carotid artery. Minimal amount of plaque is seen. The common carotid artery is patent. The external carotid artery is patent. The vertebral artery has antegrade flow. COMMENTS ON THE LEFT: Doppler frequency analysis is consistent with 16 to 49 percent diameter reduction of the internal carotid artery. Minimal amount of plaque is seen. The common carotid artery is patent. The external carotid artery is patent. The vertebral artery has antegrade flow. IMPRESSION: Less than 50% diameter reduction in the internal carotid arteries bilaterally. Consider repeat carotid artery duplex in 12 months.
== END 2016-04-10 20:45 | DRG 65 ==
LOC: 3A 17:40 → UNDOADMIN 17:40 → 3A 19:17
PROVIDERS: ADMIT Internal Medicine; ATTEND Internal Medicine
DX: I63.9 Cerebral infarction, unspecified (principal); G81.94 Hemiplegia, unspecified affecting left nondominant side; I10 Essential (primary) hypertension; E78.2 Mixed hyperlipidemia; E87.6 Hypokalemia; R26.81 Unsteadiness on feet; I25.10 Atherosclerotic heart disease of native coronary artery without angina pectoris; R26.9 Unspecified abnormalities of gait and mobility; Z82.49 Family history of ischemic heart disease and other diseases of the circulatory system; I25.2 Old myocardial infarction; I69.393 Ataxia following cerebral infarction
CPT/HCPCS: 36415; 70450; 70544; 80048; 80053; 80061; 83735; 85025; 85610; 85730; 93005; 93010; 93306; 93880